=== PATIENT | male | born 1975 | race Hispanic/Latino ===

== ENCOUNTER → 2022-04-18 | Day surgery (SDC) | payer OTHER ==
[~2022-04-18] MED LIST: ACETAMINOPHEN 1000 MG/100 ML IV ONE; ATROPINE SULFATE 1 MG/ML VIAL ONE; CYCLOBENZAPRINE; DEXAMETHASONE SOD PHOS 10 MG/1 ML VIAL ONE; EPI PEN; EPINEPHRINE HCL 1:1000 1ML 1 MG/ML AMP ONE; FENTANYL CITRATE/PF 100MCG/2 ML INJ ONE; LIDOCAINE 1% W/EPINEPHRINE 20 ML VIAL ONE; LIDOCAINE HCL 2% LOCAL INJ 5 ML SDV VIAL INJ ONE; MIDAZOLAM HCL 2 MG/2 ML VIAL ONE; MULTI-VITAMIN1 EACH PO; NEOSTIGMINE 1 MG/ML 10ML VIAL ONE; ONDANSETRON HCL INJ 2MG/ML 2ML 2 MG/ML VIAL ONE; POVIDONE IODINE 0.05% 0.05 % ML PO ONE; PROPOFOL IV EMULSION 10 MG/ML 20 ML VIAL ONE; ROCURONIUM BROMIDE 10 MG/ML 5ML VIAL IV ONE; SEVOFLURANE INHAL SOLN 250 ML PEN BTL ONE
[2022-04-18 14:00] VITALS: BP 110/69
== END | disposition home or self-care (01) ==
LOC: OR 09:21
PROVIDERS: ATTEND Otolaryngology Otolaryngology/Facial Plastic Surgery
DX: J32.1 Chronic frontal sinusitis (principal); J32.2 Chronic ethmoidal sinusitis; J32.0 Chronic maxillary sinusitis; J34.2 Deviated nasal septum; J34.89 Other specified disorders of nose and nasal sinuses; G47.33 Obstructive sleep apnea (adult) (pediatric); J45.909 Unspecified asthma, uncomplicated; M26.609 Unspecified temporomandibular joint disorder, unspecified side; Z79.899 Other long term (current) drug therapy
CPT/HCPCS: 30520; 31240; 31253; 31267; 88300; 88304; 93005; C1713; J0131; J0171; J0461; J1100; J2001; J2250; J2405; J2704; J2710; J3010